=== PATIENT | male | born 1955 | race American Indian/Alaskan Native ===

== ENCOUNTER 2019-06-23 11:04 | Outpatient (CLI) | payer OTHER ==
--- NOTE | 2019-06-23 13:34 | Ultrasound Report ---
ULTRASOUND TESTICULAR DUPLEX DOPPLER COMPLETE HISTORY: Scrotal mass TECHNIQUE: Grayscale ultrasound with color and spectral Doppler imaging. COMPARISON: None at this facility. FINDINGS: The right testicle measures 5.4 x 2.6 x 3.3 cm. The left testicle measures 5.3 x 3.0 x 3.4 cm. No lorena ticular cyst, mass or calcifications. Spectral Doppler waveforms demonstrate arterial flow bilaterall y. There are multiple small cysts in the right epididymal head measuring up to 1.6 cm. The left epididym is is unremarkable. A large complex left hydrocele is identified containing a few fine internal septations and trace debr is. IMPRESSION: Normal testicles. No testicular mass. Multiple right epididymal head cysts versus spermatoceles. Large slightly complex left hydrocele. Signer Name: Manish Snell Jr, MD Signed: 06/23/2019 1:30 PM Workstation Name: [id number]
== END 2019-06-23 11:05 | disposition home or self-care (01) ==
LOC: US 11:04
PROVIDERS: ATTEND Urology
DX: N43.2 Other hydrocele (principal)
CPT/HCPCS: 93975

== ENCOUNTER 2021-04-15 14:11 | Outpatient (CLI) | payer OTHER ==
--- NOTE | 2021-04-15 15:43 | XRay Report ---
CERVICAL SPINE 5 VIEWS INDICATION: TINGLING TO NECK/ARM; PARESTHESIA OF SKIN. COMPARISON: None. IMPRESSION: Normal alignment. Mild degenerative disc disease at C4-5. Moderate to severe degenerati ve disease disease at C5-6 and C6-7. Mild to moderate bilateral neural foraminal stenosis is suspecte d at C5-6 on the oblique images. The right side may be more affected. No acute osseous or soft tissu e abnormality. Signer Name: Manish Snell Jr, MD Signed: 04/15/2021 3:39 PM Workstation Name: [id number]
== END 2021-04-15 14:12 | disposition home or self-care (01) ==
LOC: XRAY 14:11
PROVIDERS: ATTEND Internal Medicine
DX: M50.323 Other cervical disc degeneration at C6-C7 level (principal); M50.322 Other cervical disc degeneration at C5-C6 level; M50.321 Other cervical disc degeneration at C4-C5 level; R20.2 Paresthesia of skin
CPT/HCPCS: 72050